=== PATIENT | female | born 1970 | race Caucasian/White ===

== ENCOUNTER 2022-12-30 22:13 | Inpatient (IN) | payer OTHER ==
[~2022-12-30] VITALS: Ht 170.2 cm; Wt 71.3 kg
[2022-12-30 23:20] LABS: BASOPHILS ABSOLUTE AUTO 0.04 K/mm3 (0.00-0.23); BASOPHILS PERCENT AUTO 0 % (0-2); EOSINOPHILS ABSOLUTE AUTO 0.06 K/mm3 (0.00-0.68); EOSINOPHILS PERCENT AUTO 0 % (0-6); Hematocrit 33.2 % (33.0-51.0); IMMATURE GRAN ABSOLUTE AUTO 0.13 K/mm3 (0.00-0.10); IMMATURE GRAN PERCENT AUTO 1 % (0-1); LYMPHOCYTES ABSOLUTE AUTO 2.15 K/mm3 (0.84-5.20); LYMPHOCYTES PERCENT AUTO 12 % (21-46); MONOCYTES ABSOLUTE AUTO 1.44 K/mm3 (0.16-1.47); MONOCYTES PERCENT AUTO 8 % (4-13); Mean Corpuscular HGB 27.8 pg (26.0-34.0); Mean Corpuscular HGB Conc 33.1 g/dL (31.5-36.5); Mean Corpuscular Volume 84 fL (80-100); Mean Platelet Volume 10.3 fL (9.1-12.4); NEUTROPHILS ABSOLUTE AUTO 14.44 K/mm3 (1.96-9.15); NEUTROPHILS PERCENT AUTO 79 % (41-73); NRBC Auto 0.5 /100 WBC (0.0-0.2); RDW Coefficient Variation 16.1 % (11.7-14.2); RDW Standard Deviation 49.3 fL (35.1-46.3); Red Blood Cell Count 3.95 M/mm3 (3.80-5.20); White Blood Cell Count 18.26 K/mm3 (4.00-11.30)
[2022-12-30 23:35] LABS: Albumin, Blood 2.3 g/dL (3.4-5.0); Albumin/Globulin Ratio 0.5 (0.8-1.8); Bilirubin, Total 1.2 mg/dL (0.1-1.0); Bun/Creatinine Ratio 32.4 (12.0-20.0); Calcium, Blood 9.1 mg/dL (8.5-10.1); Creatinine, Blood 0.77 mg/dL (0.40-1.00); Potassium, Blood 4.2 mmol/L (3.5-5.5); Total Protein, Blood 7.3 g/dL (6.4-8.2)
[2022-12-30] MEDS ORDERED: FURO20 (23:41)
[2022-12-30 23:54] LABS: Platelet Count 285 K/mm3 (150-400)
[2022-12-31] MEDS ORDERED: ESCI10 PO (02:58)
[2022-12-31] MEDS ORDERED: LISI5 PO (02:58)
[2022-12-31] MEDS ORDERED: BUME1 PO (02:59)
--- NOTE | 2022-12-31 03:00 | NUR ---
REPORT RECIEVED FROM PRIMO, GENERAL CAR YARD SUPERVISOR, AND AWAITING PT T/F TO ROOM 343.
[2022-12-31 04:57] LABS: BASOPHILS ABSOLUTE AUTO 0.02 K/mm3 (0.00-0.23); BASOPHILS PERCENT AUTO 0 % (0-2); EOSINOPHILS ABSOLUTE AUTO 0.02 K/mm3 (0.00-0.68); EOSINOPHILS PERCENT AUTO 0 % (0-6); Hematocrit 35.6 % (33.0-51.0); Hemoglobin 11.5 g/dL (11.5-16.0); IMMATURE GRAN ABSOLUTE AUTO 0.08 K/mm3 (0.00-0.10); IMMATURE GRAN PERCENT AUTO 1 % (0-1); LYMPHOCYTES ABSOLUTE AUTO 2.21 K/mm3 (0.84-5.20); LYMPHOCYTES PERCENT AUTO 13 % (21-46); MONOCYTES ABSOLUTE AUTO 1.33 K/mm3 (0.16-1.47); MONOCYTES PERCENT AUTO 8 % (4-13); Mean Corpuscular HGB 28.4 pg (26.0-34.0); Mean Corpuscular HGB Conc 32.3 g/dL (31.5-36.5); Mean Corpuscular Volume 88 fL (80-100); Mean Platelet Volume 9.6 fL (9.1-12.4); NEUTROPHILS PERCENT AUTO 79 % (41-73); NRBC ABSOLUTE 0.11 K/mm3 (0.00-0.02); NRBC Auto 0.6 /100 WBC (0.0-0.2); Platelet Count 328 K/mm3 (150-400); RDW Coefficient Variation 16.6 % (11.7-14.2); RDW Standard Deviation 53.7 fL (35.1-46.3); Red Blood Cell Count 4.05 M/mm3 (3.80-5.20); White Blood Cell Count 17.06 K/mm3 (4.00-11.30)
[2022-12-31 05:16] LABS: Albumin, Blood 2.5 g/dL (3.4-5.0); Albumin/Globulin Ratio 0.5 (0.8-1.8); Bilirubin, Total 1.5 mg/dL (0.1-1.0); Bun/Creatinine Ratio 29.1 (12.0-20.0); Calcium, Blood 9.3 mg/dL (8.5-10.1); Creatinine, Blood 0.89 mg/dL (0.40-1.00); Globulin, Blood 5.3 g/dL (2.2-4.0); Potassium, Blood 4.1 mmol/L (3.5-5.5); Total Protein, Blood 7.8 g/dL (6.4-8.2)
--- NOTE | 2022-12-31 05:42 | NUR ---
CRITICAL LACTIC ACID 5.8 CALLED TO . NEW ORDER RECIEVED TO HOLD LASIX, COMMENCE TELEMETRY AND TREND LACTIC ACID. WCTM CLOSELY FOR CHANGES/WORSENING.
--- NOTE | 2022-12-31 05:57 | NUR ---
T/F AND SUMMARY: PT T/F'D TO ROOM 343 VIA [place] AT 0315. SHE AMBULATED W/SBA FROM GURNEY TO BED AND WAS ORIENTED TO ROOM/CALL SYSTEM. SHE'S A/OX4, IS PLEASANT AND COOPERATIVE W/CARE AND MAKES NEEDS KNOWN. PT HAS HIGH ANXIETY R/T SOB AND BLE SWELLING. LEGS ARE COOL W/PITTING EDEMA AND ARE ELEVATED IN BED. PT USED BSC TO ATTEMPT BM W/O SUCCESS. PUREWIC CATH IS IN PLACE D/T WEAKNESS AND SOB W/EXERTION. LS ARE CLEAR T/O W/SPO2 WNL ON CONT BIOX. SHE TOLERATED RA BUT RR IS SHALLOW AND TACHY W/EXERTION AND OCCASIONALLY WHEN ANXIOUS. LASIX WAS RECIEVED IN ER FOR BNP 1729. BLOOD CULTURES DRAWN AND ROCEPHIN RECIEVED. CRITICAL LACTIC ACID (5.8), MADE AWARE AND HE WAS ALSO ALERTED TO PT REPORTING USE OF "LIFE VEST UNTL 1 MONTH AGO WHEN IT WAS STOLEN". NEW ORDERS RECIEVED FOR TELEMETRY, D/C LASIX, TREND LACTIC ACID LEVELS AND COMMENCE NA BICARB INFUSION. ECHO PLANNED THIS AM. NO ACUTE CHANGES, VSS/AFEBRILE. WCTM AND REPORT TO DAY RN.
--- NOTE | 2022-12-31 11:26 | NUR ---
PT TO [place] TO PCU. ECHO BEING DONE AT THIS TIME. WILL TRANSPORT ELIZABETH. REPORT GIVEN TO TALHA SOLOMON RN.
[2022-12-31 12:06] LABS: Source, Urine Clean Catch
[2022-12-31 12:26] LABS: Appearance, Urine Hazy (Clear); Blood, Urine 3+ (Neg); Color, Urine Yellow (P-Yellow); Glucose Qualitative, Urine Neg (Neg); Ketones, Urine 1+ (Neg); Leukocyte Esterase, Urine 3+ (Neg); Nitrite, Urine Neg (Neg); Protein, Urine 2+ (Neg); Specific Gravity, Urine 1.025 (1.003-1.022); Urobilinogen, Urine 3+ (Normal)
--- NOTE | 2022-12-31 12:31 | NUR ---
ASSUMPTION OF CARE RECEIVED REPORT FROM VANESA CRAWFORD. PT BROUGHT TO ROOM BY RN. PT ALERT, ORIENTED x4; ANXIOUS AND REQUESTING ANTIANXIETY MEDICATION. PT DENIES PAIN, CHEST PAIN/PRESSURE, NAUSES, DIZZINESS AND NUMBNESS/TINGLING. SPO2 >94% ON RA, BREATHING IS TACHYPNIC AT TIMES. TELE SINUS TACH 110'S, 2-3+ PITTING EDEMA TO BLE, WORSE TO FEET. ABD SOFT, NONTENDER. PT UP TO BSC TO VOID. OTHER VSS. NO OTHER ACUTE CHANGES NOTED. WILL CONTINUE TO MONITOR.
[2022-12-31 13:09] LABS: Bilirubin, Urine 1+ (Neg)
[2022-12-31 13:12] LABS: Bacteria Mod /hpf; Mucus Mod (0-Heavy); Squamous Epithelial Cells Few /hpf (Few)
[2022-12-31 13:15] LABS: U Amphetamine Screen Not Detected; U Barbituate Screen Not Detected; U Benzodiazapine Screen Not Detected; U Cannabinoids Screen DETECTED; U Cocaine Screen Not Detected; U Methamphetamine Screen DETECTED
[2022-12-31 13:16] LABS: U Buprenorphine Screen Not Detected; U Methadone Screen Not Detected; U Opiates Screen Not Detected; U Oxycodone Screen Not Detected; U Phencyclidine Screen Not Detected; U Propoxyphene Screen Not Detected
--- NOTE | 2022-12-31 17:57 | NUR ---
Shift Summary Pt has had minimal output t/o shift. Increase coarse ls in bases up to mid lobe, md notified. On transfer pt had ns bolus at 250cc per hour, pt received 341cc of this bolus, new order for 300cc bolus at 999cc/hr and maintanence fluids at 150cc/hr. Pt requesting anxiety medication, new orders for atarax 25mg, pt states this did not effect anxiety, new orders for increased dose entered. Vss. No other acute changes noted. Will continue to monitor.
[2022-12-31 21:31] LABS: International Normalized Ratio 2.14; Prothrombin Time Results 21.4 Sec (9.7-11.5)
--- NOTE | 2023-01-01 04:38 | NUR ---
SHIFT SUMMARY: ALERT AND ORIENTED X4, BP STABLE, HR SR-ST 90'S-110'S, AFEBRILE, SATS >96% ON ROOM AIR. RESPIRATIONS EVEN AND UNLABORED AT REST, PT BECOMES TACHYPNEIC WITH ACTIVITY. SKIN WITH OVERALL DUSKY APPEARANCE. BLE COLD TO TOUCH. RADIAL PULSES STRONG, PEDAL PULSES FAINT. +2 EDEMA NOTED IN BLE AND HANDS. CALL PLACED TO MD WITH CONCERNS OF WORSENING CHF EXAC, ORDERS RECEIVED TO TITRATE NS DOWN TO 100 ML/HR. PT VERY ANXIOUS THROUGHOUT THE NIGHT. CALL PLACED TO MD AND NEW ORDERS RECEIVED, SEE EMAR. PT FELL ASLEEP APPROX 0000 AND WAS ABLE TO SLEEP TILL 0400 WHERE PT WOKE IN PANIC. MEDICATION AND THERAPEUTIC COMMUNICATION PROVIDED. PT WITH MINIMAL URINARY OUTPUT THIS SHIFT, BLADDER SCAN SHOWED 47 ML. NO BM THROUGHOUT THE NIGHT. NS REMAINS GTT IN [place] AT 100ML/HR, HEPARIN GTT AT 18 UNITS/HR IN DEVIN. SBA TO AND FROM BEDSIDE COMMODE. FAMILY AT BEDSIDE BEGINNING OF SHIFT AND UPDATED ON PT WITH PERMISSION. BED IN LOW, CALL LIGHT IN REACH, WILL REPORT TO ONCOMING RN.
[2023-01-01 07:52] LABS: BASOPHILS PERCENT AUTO 0 % (0-2); MONOCYTES PERCENT AUTO 6 % (4-13); NRBC ABSOLUTE 0.18 K/mm3 (0.00-0.02); NRBC Auto 0.6 /100 WBC (0.0-0.2); RDW Coefficient Variation 17.4 % (11.7-14.2)
[2023-01-01 07:58] LABS: BASOPHILS ABSOLUTE AUTO 0.06 K/mm3 (0.00-0.23); EOSINOPHILS ABSOLUTE AUTO 0.01 K/mm3 (0.00-0.68); EOSINOPHILS PERCENT AUTO 0 % (0-6); Hemoglobin 11.6 g/dL (11.5-16.0); IMMATURE GRAN ABSOLUTE AUTO 0.38 K/mm3 (0.00-0.10); IMMATURE GRAN PERCENT AUTO 1 % (0-1); LYMPHOCYTES PERCENT AUTO 6 % (21-46); MONOCYTES ABSOLUTE AUTO 1.77 K/mm3 (0.16-1.47); Mean Corpuscular HGB 28.1 pg (26.0-34.0); Mean Corpuscular HGB Conc 30.5 g/dL (31.5-36.5); Mean Corpuscular Volume 92 fL (80-100); NEUTROPHILS ABSOLUTE AUTO 27.86 K/mm3 (1.96-9.15); NEUTROPHILS PERCENT AUTO 87 % (41-73); Platelet Count 283 K/mm3 (150-400); RDW Standard Deviation 58.8 fL (35.1-46.3); Red Blood Cell Count 4.13 M/mm3 (3.80-5.20); White Blood Cell Count 32.08 K/mm3 (4.00-11.30)
[2023-01-01 08:32] LABS: Albumin, Blood 2.3 g/dL (3.4-5.0); Albumin/Globulin Ratio 0.4 (0.8-1.8); Bilirubin, Total 2.3 mg/dL (0.1-1.0); Bun/Creatinine Ratio 30.9 (12.0-20.0); Calcium, Blood 9.2 mg/dL (8.5-10.1); Creatinine, Blood 1.23 mg/dL (0.40-1.00); Globulin, Blood 5.3 g/dL (2.2-4.0); Potassium, Blood 5.8 mmol/L (3.5-5.5); Total Protein, Blood 7.6 g/dL (6.4-8.2)
--- NOTE | 2023-01-01 09:04 | NUR ---
AM NOTE: PATIENT ALERT AND ORIENTED. VERY ANXIOUS THIS MORNING. ABLE TO STAND AND USE BSC WITH ONE PERSON ASSIST. DENIES N/T. DNR BAND TO LEFT WRIST. TELE SHOWING ST WITH HR 100-110'S. DENIES CHEST PAIN/PRESSURE. BP STABLE. PPP. EDEMA TO BLE AND BUE. HEPARIN INFUSING PER EMAR. LUNGS SOUNDING CLEAR IN UPPER LOBES AND COARSE/DIM IN BASES. STATES SHE HAS SOB WITH ANXIETY. NO COUGH NOTED. ON ROOM AIR SATING ABOVE 95%. RESP ARE EVEN AND UNLABORED. DENIES ABDOMINAL PAIN/NAUSEA ALTHOUGH PATIENT IS HAVING FLANK PAIN UPON PALPATION. SOFT/LOOSE BOWEL MOVMENT THIS MORNING MIXED WITH VERY SMALL AMOUNT OF URINE. UPON CHANGING ATTENDS THIS AM, SMALL RED SMEAR THAT APPEARS TO BE OF URINARY SOURCE. PATIENT DENIES PAIN WHEN URINATING. DR. SANCHEZ AND DR. PERES AWARE. THIS RN ALSO SPOKE WITH DR. SANCHEZ THIS MORNING REGARDING AM LABS RESULTS, MINIMAL URINE OUTPUT, BLOOD THAT WAS SEEN IN THIS MORNING ATTENDS AND NEW ORDER FOR EKG. EKG BEING DONE AT THIS TIME AND THIS RN TO UPDATE DR. SANCHEZ WHEN COMPLETE. PATIENT NOT INTERESTED IN EATING BREAKFAST THIS MORNING. SKIN OVERALL PALE AND DRY. BLE SLIGHTY DUSKY WITH RED/PURPLE COLORING IN FEET. ABX INFUSING AT THIS TIME.
--- NOTE | 2023-01-01 09:18 | NUR ---
DR. SANCHEZ AT BEDSIDE TO READ EKG
--- NOTE | 2023-01-01 09:46 | NUR ---
VP HUMAN RESOURCES IN ROOM AT THIS TIME.
[2023-01-01 10:37] LABS: Bun/Creatinine Ratio 33.1 (12.0-20.0); Calcium, Blood 8.6 mg/dL (8.5-10.1); Creatinine, Blood 1.3 mg/dL (0.40-1.00); Potassium, Blood 4.9 mmol/L (3.5-5.5)
--- NOTE | 2023-01-01 12:22 | NUR ---
PATIENT SLEEPY THIS AFTERNOON, NOT WANTING ANY CARES. ABDOMINAL AND BLADDER US COMLPETED AND RESULTED. PATIENT DENIES PAIN AT REST. STATES HER ABDOMIN IS TENDER TO PALPATION. EATING VERY SMALL AMOUNT OF LUNCH, DRINKING FLUIDS. AFTERNOON VITALS STABLE. HEPARIN PLACED ON HOLD FOR ONE HOUR DUE TO CRITICALLY HIGH APTT. WILL RESTART HEPARIN AT 1300. PATIENT SOB WITH MOVEMENTS IN BED CAUSING HER TO HAVE ANXIETY. ONLY REQUESTING ANXIETY MEDS THIS MORNING WITH AM MEDS, SEE EMAR. CASE MANAGEMENT BY TO ASSESS PATIENT. PATIENT STATES HER DAUGHTER JINNY IS MAIN CONTACT. IV LASIX GIVEN X1 PER ORDER. BLADDER SCAN COMPLETED SHOWING 93 ML. VERY SCANT AMOUNT OF DRIED BLOOD IN ATTENDS THE SIZE OF A QUARTER THIS AFTERNOON, WHICH APPEARS TO BE COMING FROM URINARY ORIGIN.
--- NOTE | 2023-01-01 13:09 | NUR ---
PATIENT COMPLAINING OF ANXIETY AT THIS TIME. NOT ABLE TO GIVEN ANYMORE ATARAX FOR 1.[address] SANCHEZ CALLED AND THIS RN SPOKE WITH DR. SUGGS TO UPDATE ON ANXIETY. PATIENT GIVEN LASIX AND HAS NOT VOIDED, THIS RN OFFERED TO HELP PATIENT TO BSC, PATIENT STATES SHE HAS JUST BEEN GOINING IN HER ATTENDS GETTING UP TO THE BATHROOM CAUSES HER MORE ANXIETY. THIS RN OFFERED BED SENIOR, AND WICKING SYSTEM. PATIENT DENIES BOTH. PATIENT DENIES ATTENDS CHANGE AT THIS TIME. PATIENT ASKS FOR TIME TO CALM ANXIETY PRIOR TO CHANGING ATTENDS. DIFFICULT TO DOCCUMENT STRICT I/O'S WITH EPISODES OF ATTENDS WETTING. DR. SUGGS AWARE. HEPARIN RESTARTED AT 1303 PER EMAR.
[2023-01-01 16:39] LABS: Bun/Creatinine Ratio 30.3 (12.0-20.0); Calcium, Blood 8.9 mg/dL (8.5-10.1); Creatinine, Blood 1.55 mg/dL (0.40-1.00); Potassium, Blood 5.7 mmol/L (3.5-5.5)
--- NOTE | 2023-01-01 16:58 | NUR ---
Spiritual Care Nurse Request. Pt. was experiencing high anxiety due to a recent diagnosis. Two nurses [facility] After conferring with the presiding director of public safety, this director of public safety visited the Pt. after the lab team finished their blood draws. Pt. was displaying evidence of rapid breathing when the Pts. daughter Gregoria (NOK and decision maker) welcomed my visit. Pt. verbalized that she was anxious about her unknown prognosis. Sought to normalize the Pt. experience and help the Pt. breath slowly and gave education to address her need to rest. Prayed with Pt. and Daughter. While this director of public safety and the Pts. nurse Claudia were present, Dr. Drake arrived and gave the Pt. a very honest diagnosis. Plans of care were dicussed. Communicated with daughter that this director of public safety will continue to monitor her mother's health, and will remain available to the Pt. and family. Daughter verbalized gratitude for the spiritual care visit.
--- NOTE | 2023-01-01 18:15 | NUR ---
SHIFT SUMMARY: PATIENT FAMILY IN TO VISIT. DR. BACA BY TO DISCUSS PATIENT UPDATE WITH DAUGHTER JINNY. PASTORAL CARE AT BEDSIDE FOR SUPPORT. PATIENT STRUGGLING WITH ANXIETY THROUGHOUT THE SHIFT THAT SEEMS TO HAVE RESOLVED AFTER VISITING WITH HER FAMILY. PATIENT AND DAUGHTER CONTINUE TO BE IN AGGREANCE OF DNR CODE STATUS AND DISCUSSED THE WANT FOR COMFORT MEDICATIONS IF PATIENT DECLINED OVERNIGHT. COMPLAINS OF SOME SLIGHT STOMACH CRAMPING THIS EVENING. BLOOD SUGAR RECENTLY LOW AND DR. SUGGS CALLED WITH ORDERS. D50 GIVEN PER EMAR. PATIENT BLOOD SUGAR TRENDING UP. NEW ORDERS FOR CBG CHECKS Q2. PATIENT EATING DINNER AT THIS TIME. NOT PRODUCING MUCH URINE. 2 SMALL UNMEASURABLE VOIDS IN ATTENDS AND ONE SINGLE 100 ML VOID USING BSC. SOFT STOOL X2. PURWICK IN PLACE AT THIS TIME. CALL LIGHT IN REACH. WILL CONTINUE TO MONITOR AND REPORT OFF TO ONCOMING RN.
[2023-01-02 03:30] LABS: BASOPHILS ABSOLUTE AUTO 0.06 K/mm3 (0.00-0.23); BASOPHILS PERCENT AUTO 0 % (0-2); EOSINOPHILS PERCENT AUTO 0 % (0-6); Hematocrit 33.5 % (33.0-51.0); Hemoglobin 10.6 g/dL (11.5-16.0); IMMATURE GRAN ABSOLUTE AUTO 0.44 K/mm3 (0.00-0.10); IMMATURE GRAN PERCENT AUTO 1 % (0-1); LYMPHOCYTES ABSOLUTE AUTO 2.63 K/mm3 (0.84-5.20); LYMPHOCYTES PERCENT AUTO 8 % (21-46); MONOCYTES ABSOLUTE AUTO 1.32 K/mm3 (0.16-1.47); MONOCYTES PERCENT AUTO 4 % (4-13); Mean Corpuscular HGB Conc 31.6 g/dL (31.5-36.5); Mean Corpuscular Volume 89 fL (80-100); Mean Platelet Volume 10.6 fL (9.1-12.4); NEUTROPHILS ABSOLUTE AUTO 29.86 K/mm3 (1.96-9.15); NEUTROPHILS PERCENT AUTO 87 % (41-73); NRBC ABSOLUTE 0.34 K/mm3 (0.00-0.02); Platelet Count 262 K/mm3 (150-400); RDW Coefficient Variation 17.3 % (11.7-14.2); RDW Standard Deviation 55.6 fL (35.1-46.3); Red Blood Cell Count 3.78 M/mm3 (3.80-5.20); White Blood Cell Count 34.31 K/mm3 (4.00-11.30)
[2023-01-02 04:31] LABS: Albumin, Blood 2.1 g/dL (3.4-5.0); Albumin/Globulin Ratio 0.4 (0.8-1.8); Bilirubin, Total 1.9 mg/dL (0.1-1.0); Bun/Creatinine Ratio 33.5 (12.0-20.0); Calcium, Blood 8.4 mg/dL (8.5-10.1); Creatinine, Blood 1.7 mg/dL (0.40-1.00); Globulin, Blood 4.9 g/dL (2.2-4.0); Potassium, Blood 5.5 mmol/L (3.5-5.5)
--- NOTE | 2023-01-02 06:00 | NUR ---
SHIFT SUMMARY PATIENT ALERT AND ORIENTED X4. HAD NO COMPLAINTS OF PAIN OVERNIGHT. MEDICATED PER EMAR FOR ANXIETY. LUNG SHOUNDS REVEALED EXPIRATORY WHEEZING T/O AND CRACKLES IN THE BASES. PATIENT HAS SOB WITH EXERTION AND ANXIETY. PATIENT DENIED CHEST PAIN. SHE HAD A 7 BEAT RUN OF V TACH THIS MORNING, OTHERWISE HAS BEEN SINUS TACH IN THE LOW 100'S ON TELE. WILL CONTINUE TO MONITOR. CALL LIGHT WITHIN REACH.
--- NOTE | 2023-01-02 09:00 | NUR ---
AM NOTE: PATIENT ALERT AND ORIENTED. IN GOOD SPIRITS THIS MORNING AND COLORING IMPROVED. FREQUENT BOUGHTS OF ANXIETY. ON ROOM AIR SATING ABOVE 95%. LUNGS SOUNDING CLEAR AND DIM IN BASES. SOB WITH ANXIETY ATTACKS. REQUESTING A BREATHING TREATMENT THIS MORNING. TELE SHOWING SINUS RHYTHM/SINUS TACH WITH HR 90-110'S. BP STABLE. PPP. DENIES CHEST PAIN/PRESSURE. SLIGHT ABDOMINAL TENDERNESS. EATING SMALL AMOUNT OF BREAKFAST. ATTENDS IN PLACE. PLAN TO PLACE CHANG THIS AM PER DR. BACA TO HAVE MORE ACCURATE I/O. BOWEL TONES PRESENT. BLOOD SUGAR CHECKS NOW Q4. BILATERAL FEET/TOES BRIGHT RED AND WARM. PATIENT STATES HER TOES ARE BURNING AND PAINFUL. DR. SANCHEZ, DR. PERES AND DR. BACA ALL AWARE. HEPARIN INFUSING. ABX INFUSED. CALL LIGHT IN REACH. WILL CONTINUE TO MONITOR.
--- NOTE | 2023-01-02 10:01 | NUR ---
CHANG CATHETER PLACED AND NEW URINE SAMPLE OBTAINED AND SENT TO LAB.
[2023-01-02 10:02] LABS: Source, Urine Foley catheter
[2023-01-02 10:28] LABS: Appearance, Urine Clear (Clear); Bilirubin, Urine Neg (Neg); Blood, Urine Neg (Neg); Color, Urine Yellow (P-Yellow); Glucose Qualitative, Urine Neg (Neg); Ketones, Urine Neg (Neg); Leukocyte Esterase, Urine Neg (Neg); Nitrite, Urine Neg (Neg); Protein, Urine 1+ (Neg); Urobilinogen, Urine NORM (Normal)
--- NOTE | 2023-01-02 11:15 | NUR ---
Initial palliative care consult: Jenifer is a 52 year old with a history of emphysema, asthma, CHF, HTN, arthritis, anxiety and meth use. She was admitte on 12/31/22 with pnemonia and sepsis. She is currently in the PCU and has a heparin gtt running for intracardiac thrombi. Jenifer reports she is very fatigued. She reports that she has nausea off and on and has recently had a poor appetite. Staff reports that pt was very anxious yesterday. Today, Jenifer reports that her anxiety is under control. Visit kept brief as pt had difficulty keeping her eyes open during the conversation. Will plan to revisit with her when she is more awake.
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
--- NOTE | 2023-01-02 15:50 | NUR ---
TRANSFER OF CARE TO RN GITA. PATIENT MOVED TO PCU 17. NO NEW CHANGES. VITAL SIGNS REMAINS STABLE. ABX INFUSED THIS SHIFT. REMAINS ON ROOM AIR. NO TELE EVETS. MEDICATED FOR ANXIETY X2. DAUGHTER JINNY IN AND MEETING WITH PALLIATIVE CARE TO DISCUSS ADVANCED DIRECTIVE. OTHER SISTER AND NEPHEW SHOULD BE IN TO SIGN ADVANCED DIRECTIVE WITNESSES. PATIENT RECENTLY COUGHED PRIOR TO TRANSFER TO PCU 17 AND PRODUCED QUARTER SIZE BLOOD TINGED SPUTUM.
--- NOTE | 2023-01-02 17:02 | NUR ---
ASSUMED CARE ASSUMED CARE FROM VANESA DICKERSON AT 1530. PT LYING IN BED, ALERT, ORIENTED. LUNGS ARE COARSE AND HAVE AN EXPIRATORY WHEEZE. PT COUGHING UP DARK RED SPUTUM. PT REQUESTING A BREATHING TREATMENT, RT NOTIFIED. SR, BP STABLE. LEGS HAVE 1+ EDEMA. TOES ARE BRIGHT RED. LEGS ELEVATED PER MD RECOMMENDATIONS. NO OTHER REQUESTS FROM PT AT THIS TIME. CONTINUING TO MONITOR.
[2023-01-03 01:21] LABS: BASOPHILS ABSOLUTE AUTO 0.02 K/mm3 (0.00-0.23); BASOPHILS PERCENT AUTO 0 % (0-2); EOSINOPHILS ABSOLUTE AUTO 0.02 K/mm3 (0.00-0.68); EOSINOPHILS PERCENT AUTO 0 % (0-6); Hematocrit 32.6 % (33.0-51.0); Hemoglobin 10.8 g/dL (11.5-16.0); IMMATURE GRAN ABSOLUTE AUTO 0.28 K/mm3 (0.00-0.10); IMMATURE GRAN PERCENT AUTO 1 % (0-1); LYMPHOCYTES ABSOLUTE AUTO 1.96 K/mm3 (0.84-5.20); LYMPHOCYTES PERCENT AUTO 8 % (21-46); MONOCYTES ABSOLUTE AUTO 0.92 K/mm3 (0.16-1.47); MONOCYTES PERCENT AUTO 4 % (4-13); Mean Corpuscular HGB 28.3 pg (26.0-34.0); Mean Corpuscular HGB Conc 33.1 g/dL (31.5-36.5); Mean Corpuscular Volume 85 fL (80-100); Mean Platelet Volume 10.5 fL (9.1-12.4); NEUTROPHILS PERCENT AUTO 86 % (41-73); NRBC ABSOLUTE 0.28 K/mm3 (0.00-0.02); NRBC Auto 1.2 /100 WBC (0.0-0.2); Platelet Count 233 K/mm3 (150-400); RDW Coefficient Variation 17.4 % (11.7-14.2); RDW Standard Deviation 53.6 fL (35.1-46.3); Red Blood Cell Count 3.82 M/mm3 (3.80-5.20)
[2023-01-03 01:42] LABS: Anion Gap 9 mmol/L (6-16); Blood Urea Nitrogen 63 mg/dL (8-24); Bun/Creatinine Ratio 37.1 (12.0-20.0); CO2, Blood 22 mmol/L (21-32); Calcium, Blood 8.1 mg/dL (8.5-10.1); Chloride, Blood 99 mmol/L (98-108); Glomerular Filtration Rate 36 (60-); Glucose, Blood 140 mg/dL (70-99); Potassium, Blood 4.4 mmol/L (3.5-5.5); Sodium, Blood 130 mmol/L (136-145); Vancomycin, Random 26.5 ug/mL
--- NOTE | 2023-01-03 06:37 | NUR ---
SHIFT SUMMARY OVERNIGHT, PATIENT ALERT AND ORIENTED. EXTREMELY ANXIOUS, WHICH EXACERBATES PATIENT'S SOB. MEDICATED SEVERAL TIMES PER MAR FOR ANXIETY WITHOUT MUCH RELIEF IN SYMPTOMS AND PANIC ATTACKS. MONITOR SHOWING SR/ST WITH FREQUENT PVCS. HR 90-100S. SBP 120-150S. BLE EDEMA PRESENT, BUT IMPROVING IN COMPARISON TO ADMISSION PER PATIENT. AFEBRILE. RA WITH SATS >92%. WITH ANXIETY, PATIENT BECOMES MORE SOB AND DYSPNIC, INTERMITTENTLY WHEEZY. RECEIVED PRN BREATHING TREAMENTS OVERNIGHT WHICH PATIENT STATES IMPROVED HER SYMPTOMS. OCCASIONALLY HAS PRODUCTIVE COUGH WITH THICK, BROWN AND BLOOD TINGED SPUTUM, CONSISTENT WITH THE SPUTUM SHE HAD BE COUGHING UP ON THE DAYS LEADING UP TO HER ADMIT. APPETITE IMPROVING. CHANG CATH IN PLACE; 500CC OUT OVERNIGHT. HEPARIN GTT INFUSING AND TITRATED PER PHARMACY; SUPRATHERAPEUTIC ON AM DRAW; HELD FOR 1 HOUR AND RATE DECREASED PER ORDER; NEXT PTT @ 1000. CALL LIGHT WITHIN REACH. NO FURTHER CONCERNS.
--- NOTE | 2023-01-03 08:30 | NUR ---
PT ANXIOUS AND AGITATED, SHE IS CURSING AT MD AT BEDSIDE. STS THAT SHE HAS NOT BEEN MEDICATED FOR ANXIETY TELLS MD THAT STAFF HAS BEEN "LATE ON ALL OF MY MEDICATIONS". EMAR IS REVIEWED WITH MD FLOYD OF PATIENT TO HELP EDUCATE PT THAT ANXIETY MEDICATIONS HAVE BEEN GIVEN ON TIME AND OFTEN AVAILABLE. PT CEASES FROM CURSING AT STAFF AFTER EDUCATION. SHE IS MEDCIATED FOR ANXIETY WITHOUT FURTHER INCIDENT
[2023-01-03 11:49] LABS: Albumin, Blood 2.1 g/dL (3.4-5.0); Albumin/Globulin Ratio 0.4 (0.8-1.8); Bilirubin, Indirect 0.5 mg/dL (0.1-0.7); Bilirubin, Total 1.5 mg/dL (0.1-1.0); Total Protein, Blood 7.1 g/dL (6.4-8.2)
--- NOTE | 2023-01-03 16:08 | NUR ---
REPORT TO MEDICAL FLOOR RN. PT TRANSPORTED TO MEDICAL FLOOR VIA WHEELCHAIR. NO FLUIDS INFUSING, POWERGLIDES SALINE LOCKED. PT'S CHANG NOTED TO BE LEAKING PRIOR TO LEAVING PT STS "I TOLD MY NURSE THAT IT WAS PULLED OUT TOO MUCH" THE CHANG APPEARED TO BE IN THE APPROPRIATE POSITION BUT WAS NOTED TO ONLY HAVE 7.5ML OF FLUID WHEN THERE WAS EXPECTED TO BE 10ML OF FLUID IN THE CHANG BALLOON, ADDITIONAL 2.5ML PLACED TO TOTAL 10ML IN BALLOON. GOWN AND ATTENDED REPLACED PRIOR TO LEAVING UNIT.
--- NOTE | 2023-01-03 17:36 | NUR ---
PT TRANSFERRED FROM PCU TO MEDICAL FLOOR. PT IS SITTING UPRIGHT IN BED UPON MY ARRIVAL EATING A SNACK. SHE IS ALERT AND COOPERATIVE. PT REPORTS THAT SHE IS FEELING BETTER AND DOES NOT FEEL ANXIOUS. PT REPORTS THAT HER FAMILY VISITED YESTERDAY ANBD SIGNED THE AND COPIES ARE IN THE CHART. POLST IS STILL UNSIGNED BY PROVIDER, POL PLACED ON WHITE BOARD AND ASKED RN AND PT TO REMIND THE DOCTOR WHEN THEY MAKE ROUNDS. PT HAS QUESTIONS OR CONCERNS AT THIS TIME. PALLIATIVE CARE WILL CONT TO FOLLOW AND OFFER SUPPORT.
--- NOTE | 2023-01-03 17:48 | NUR ---
PCU TRANSFER Patient AOx3, pleasant & cooperative, no behaviors this evening. Patient reporting "high anxiety", she requested PRN, and was doing some deep breathing exercises. Patient OOB, ambulated to [facility]. Tena cath in place, draining to gravity. Continues to report brownish/red sputum. Vitals stable, CBG 127 this evening. Will continue plan of care.
[2023-01-04 08:38] LABS: BASOPHILS ABSOLUTE AUTO 0.03 K/mm3 (0.00-0.23); BASOPHILS PERCENT AUTO 0 % (0-2); EOSINOPHILS PERCENT AUTO 1 % (0-6); Hematocrit 33.1 % (33.0-51.0); IMMATURE GRAN ABSOLUTE AUTO 0.31 K/mm3 (0.00-0.10); IMMATURE GRAN PERCENT AUTO 2 % (0-1); LYMPHOCYTES ABSOLUTE AUTO 2.02 K/mm3 (0.84-5.20); LYMPHOCYTES PERCENT AUTO 10 % (21-46); MONOCYTES ABSOLUTE AUTO 1.62 K/mm3 (0.16-1.47); MONOCYTES PERCENT AUTO 8 % (4-13); Mean Corpuscular HGB 27.6 pg (26.0-34.0); Mean Corpuscular HGB Conc 33.2 g/dL (31.5-36.5); Mean Corpuscular Volume 83 fL (80-100); Mean Platelet Volume 10.1 fL (9.1-12.4); NEUTROPHILS ABSOLUTE AUTO 16.47 K/mm3 (1.96-9.15); NEUTROPHILS PERCENT AUTO 80 % (41-73); NRBC ABSOLUTE 0.11 K/mm3 (0.00-0.02); NRBC Auto 0.5 /100 WBC (0.0-0.2); Platelet Count 211 K/mm3 (150-400); RDW Coefficient Variation 17.1 % (11.7-14.2); RDW Standard Deviation 51.7 fL (35.1-46.3); Red Blood Cell Count 3.98 M/mm3 (3.80-5.20); White Blood Cell Count 20.55 K/mm3 (4.00-11.30)
[2023-01-04 08:58] LABS: Albumin, Blood 1.9 g/dL (3.4-5.0); Albumin/Globulin Ratio 0.4 (0.8-1.8); Bilirubin, Total 1.6 mg/dL (0.1-1.0); Calcium, Blood 8.5 mg/dL (8.5-10.1); Creatinine, Blood 1.37 mg/dL (0.40-1.00); Total Protein, Blood 6.9 g/dL (6.4-8.2)
--- NOTE | 2023-01-04 16:45 | NUR ---
DAYSHIFT SUMMARY No acute changes to patient status. Patient worked with therapy today, walked 80ft with FWW. Patient reported ambulating helps with discomfort in feet. Tena in place, draining to gravity. Complained of constipation, stool softner given. Bumex give this morning. Anxiety managed with PRNs. Vitals stable. Will continue plan of care.
[2023-01-05 05:06] LABS: BASOPHILS ABSOLUTE AUTO 0.03 K/mm3 (0.00-0.23); BASOPHILS PERCENT AUTO 0 % (0-2); EOSINOPHILS PERCENT AUTO 1 % (0-6); Hemoglobin 11.3 g/dL (11.5-16.0); IMMATURE GRAN ABSOLUTE AUTO 0.31 K/mm3 (0.00-0.10); IMMATURE GRAN PERCENT AUTO 2 % (0-1); LYMPHOCYTES PERCENT AUTO 11 % (21-46); MONOCYTES ABSOLUTE AUTO 1.81 K/mm3 (0.16-1.47); MONOCYTES PERCENT AUTO 10 % (4-13); Mean Corpuscular HGB 27.3 pg (26.0-34.0); Mean Corpuscular HGB Conc 32.3 g/dL (31.5-36.5); Mean Corpuscular Volume 85 fL (80-100); Mean Platelet Volume 10.6 fL (9.1-12.4); NEUTROPHILS ABSOLUTE AUTO 13.91 K/mm3 (1.96-9.15); NEUTROPHILS PERCENT AUTO 77 % (41-73); NRBC ABSOLUTE 0.15 K/mm3 (0.00-0.02); NRBC Auto 0.8 /100 WBC (0.0-0.2); Platelet Count 223 K/mm3 (150-400); RDW Coefficient Variation 17.3 % (11.7-14.2); RDW Standard Deviation 52.5 fL (35.1-46.3); Red Blood Cell Count 4.14 M/mm3 (3.80-5.20); White Blood Cell Count 18.16 K/mm3 (4.00-11.30)
[2023-01-05 05:37] LABS: Albumin, Blood 1.9 g/dL (3.4-5.0); Albumin/Globulin Ratio 0.4 (0.8-1.8); Bilirubin, Total 1.6 mg/dL (0.1-1.0); Bun/Creatinine Ratio 46.1 (12.0-20.0); Calcium, Blood 8.6 mg/dL (8.5-10.1); Creatinine, Blood 1.15 mg/dL (0.40-1.00); Globulin, Blood 5.3 g/dL (2.2-4.0); Total Protein, Blood 7.2 g/dL (6.4-8.2)
--- NOTE | 2023-01-05 06:42 | NUR ---
12 BEAT RUN OF VTACH AT APPROX 0600 PER SOUND ART INSTRUCTOR
--- NOTE | 2023-01-05 17:57 | NUR ---
DAYSHIFT SUMMARY Patient worked with therapy, recommendation is HH & FWW. Patient stated she would like a FWW with a seat. Vitals stable, saturations stable on RA. Patient verbalizing feeling anxious and nervous about discharge. Patient doing well this shift, requiring minimal assistance from staff with ambulation, cares. Buspar & Atarax given for anxiety, PRNs effective. IV Bumex ordered BID. Daughter wants called tomorrow and updated on time for discharge. Will continue plan of care.
[2023-01-06 06:17] LABS: BASOPHILS ABSOLUTE AUTO 0.02 K/mm3 (0.00-0.23); BASOPHILS PERCENT AUTO 0 % (0-2); EOSINOPHILS PERCENT AUTO 1 % (0-6); Hematocrit 35.1 % (33.0-51.0); Hemoglobin 11.3 g/dL (11.5-16.0); IMMATURE GRAN ABSOLUTE AUTO 0.23 K/mm3 (0.00-0.10); IMMATURE GRAN PERCENT AUTO 1 % (0-1); LYMPHOCYTES ABSOLUTE AUTO 1.74 K/mm3 (0.84-5.20); LYMPHOCYTES PERCENT AUTO 10 % (21-46); MONOCYTES ABSOLUTE AUTO 1.93 K/mm3 (0.16-1.47); MONOCYTES PERCENT AUTO 12 % (4-13); Mean Corpuscular HGB 27.2 pg (26.0-34.0); Mean Corpuscular HGB Conc 32.2 g/dL (31.5-36.5); Mean Corpuscular Volume 85 fL (80-100); Mean Platelet Volume 10.3 fL (9.1-12.4); NEUTROPHILS PERCENT AUTO 76 % (41-73); NRBC ABSOLUTE 0.12 K/mm3 (0.00-0.02); NRBC Auto 0.7 /100 WBC (0.0-0.2); Platelet Count 207 K/mm3 (150-400); RDW Coefficient Variation 17.6 % (11.7-14.2); RDW Standard Deviation 53.4 fL (35.1-46.3); Red Blood Cell Count 4.15 M/mm3 (3.80-5.20); White Blood Cell Count 16.82 K/mm3 (4.00-11.30)
[2023-01-06 06:35] LABS: Albumin, Blood 1.9 g/dL (3.4-5.0); Albumin/Globulin Ratio 0.3 (0.8-1.8); Bilirubin, Total 1.6 mg/dL (0.1-1.0); Bun/Creatinine Ratio 40.8 (12.0-20.0); Calcium, Blood 8.6 mg/dL (8.5-10.1); Creatinine, Blood 1.03 mg/dL (0.40-1.00); Globulin, Blood 5.7 g/dL (2.2-4.0); Total Protein, Blood 7.6 g/dL (6.4-8.2)
[2023-01-06] MEDS ORDERED: ELIQUIS5 M2 PO (14:49)
[2023-01-06] MEDS ORDERED: ALBU90OI INH (14:50)
[2023-01-06] MEDS ORDERED: DOCU100 PO (14:51)
[2023-01-06] MEDS ORDERED: BUSP5 PO (14:51)
[2023-01-06] MEDS ORDERED: MELATONIN5 M1 PO (14:52)
[2023-01-06] MEDS ORDERED: METO25ER PO (14:52)
[2023-01-06] MEDS ORDERED: HYDHCL25 PO (14:52)
[2023-01-06] MEDS ORDERED: MIRALAX17 GM PO (14:53)
[2023-01-06] MEDS ORDERED: TORSE20 PO (14:53)
--- NOTE | 2023-01-06 17:54 | NUR ---
PT DISCHARGED HOME WITH HOME HEALTH. DISCHARGE INSTRUCTIONS AND EDUCATION MATERIAL EXPLAINED TO PT. LAB SCRIPT GIVEN TO PT. NO NEW QUESTIONS OR CONCERNS. POWER GLIDES REMOVED AND PT TOLERATED WELL. ALL BELONGINGS SENT HOME WITH PT. PT TAKEN BY WHEELCHAIR TO WAITING VEHICLE.
== END 2023-01-06 17:00 | disposition home health service (06) | DRG 917 ==
LOC: ER 22:13 → MEDS 12-31 02:16 → PCU 12-31 02:16 → MEDS 12-31 03:20 → PCU 12-31 11:37 → MEDS 01-03 16:12
PROVIDERS: Emergency Medicine; Family Medicine; Hospitalist; Student in an Organized Health Care Education/Training Program; ADMIT Internal Medicine
DX: T43.651A Poisoning by methamphetamines accidental (unintentional), initial encounter (principal); I50.23 Acute on chronic systolic (congestive) heart failure; J18.9 Pneumonia, unspecified organism; I13.0 Hypertensive heart and chronic kidney disease with heart failure and stage 1 through stage 4 chronic kidney disease, or unspecified chronic kidney disease; E87.1 Hypo-osmolality and hyponatremia; E87.20 Acidosis, unspecified; N17.9 Acute kidney failure, unspecified; I42.7 Cardiomyopathy due to drug and external agent; Z28.21 Immunization not carried out because of patient refusal; Z91.14 Patient's other noncompliance with medication regimen; F41.0 Panic disorder [episodic paroxysmal anxiety]; J43.9 Emphysema, unspecified; M19.90 Unspecified osteoarthritis, unspecified site; F17.210 Nicotine dependence, cigarettes, uncomplicated; I51.3 Intracardiac thrombosis, not elsewhere classified; F32.A Depression, unspecified; Z66 Do not resuscitate; T43.655A Adverse effect of methamphetamines, initial encounter; F15.10 Other stimulant abuse, uncomplicated; F12.10 Cannabis abuse, uncomplicated; K70.0 Alcoholic fatty liver; E87.5 Hyperkalemia; D72.828 Other elevated white blood cell count; N18.9 Chronic kidney disease, unspecified; K82.8 Other specified diseases of gallbladder; R16.0 Hepatomegaly, not elsewhere classified; Z98.890 Other specified postprocedural states; Z98.891 History of uterine scar from previous surgery; Z90.710 Acquired absence of both cervix and uterus; Z90.722 Acquired absence of ovaries, bilateral; Z79.899 Other long term (current) drug therapy; X58.XXXA Exposure to other specified factors, initial encounter
CPT/HCPCS: 36415; 71045; 76700; 76857; 80048; 80053; 80076; 80202; 81001; 82947; 83605; 83880; 84145; 84484; 85025; 85610; 85730; 87040; 87086; 93005; 93010; 93922; 94640; 94760; 94762; 96374; 97116; 97162; 97530; 99285-25; A9270; C1751; C8929; J0692; J0696; J1644; J1650; J1940; J3370; J7030; J7050; J7799; Q9957